=== PATIENT | male | born 1990 | race Caucasian/White ===

== ENCOUNTER 2017-11-26 04:09 | Emergency (ER) | payer SELFPAY ==
--- NOTE | 2017-11-26 04:10 | ED.GENADUL_ITS ---
Discharge Plan Discharge Details Chief Complaint: Chest Pain Clinical Impression: Chest wall pain Reason For Visit: ADRIAN Primary Care Provider: Kasey Dumont ED Provider: Uli Wilkinson Disposition Patient Disposition: HOME Condition: Good Home Meds and New Rx's Prescriptions: No Action No Known Home Meds RF: 0 Discharge Instructions Additional Instructions: Your laboratory studies and chest x-ray tonight were normal. Your pain appears to be related to chest wall pain as it is worse with palpation and better with Toradol. You may use Motrin as needed for pain. Follow-up with primary care this week. Return to emergency department for fever, new/worsening chest pain, shortness of breath, abdominal pain, other concerns. Referrals: Primary Care Provider [Outside] Medical Decision Making Medical Records Patient presenting to ED with complaint of chest pain. He has significant tenderness along bilateral costochondral margins and pain is completely reproducible. He also complained of near syncope, shortness of breath, hematemesis, hematochezia, hematuria. He refuses rectal exam. His blood pressure is fine. He is bradycardic not tachycardic. He does not appear to be in any distress. I doubt that this is ACS, dissection, PE. I also find it highly unlikely that he is bleeding as much as he states. He is completely hemodynamically stable. His EKG shows no acute ST changes. Will place IV and check labs including a troponin and d-dimer. Will get a chest x-ray. Will give Toradol for his pain. 6:30 AM - Patient's laboratory studies are unremarkable. His hemoglobin is high normal. His troponin and d-dimer are negative. There are no significant abnormalities on his blood work. His urinalysis is negative for blood. His chest x-ray is normal. His pain completely resolved with Toradol. His chest pain which is his presenting complaint is musculoskeletal in nature. In regards to his other complaints there is no evidence of significant bleeding at this time. This x-ray is negative and his d-dimer is negative as well. There does not appear to be any emergent condition which requires admission. He has been stable here and is pain-free. He will be discharged home to follow-up with primary care next week. He may use Motrin or Tylenol for the chest pain. Return to ED for fever, worsening pain, difficulty breathing, other concerns. Lab Data Lab results reviewed: Yes I reviewed the patient's lab results. ECG Data Attestation: I personally reviewed and interpreted this ECG (s) as follows: Interpretation: Sinus bradycardia at 55 with sinus arrhythmia. Normal axis and intervals. No acute ST changes. HPI - General Adult General Mode of arrival: EMS . Date/Time Provider Initiated Documentation: 11/26/17 04:09 . Limitations to Documentation: no limitations . Information obtained by: patient . HPI Narrative-FOR DICTATION ONLY HPI Narrative: Patient presents by EMS with complaints of chest pain. Patient reports having chest pain for the last couple of days. Tonight became severe and woke him up. He felt short of breath. He went to stand up got lightheaded and dizzy and almost passed out. He states he did fall. He did not have a loss of consciousness. He continues to have severe chest pain that does not radiate anywhere. He is also reporting vomiting blood, urinating blood, and having blood per rectum. He denies having abdominal pain. He states he has not been eating and drinking much. He has some discomfort in the left leg status post the fall. Related Data Home Medications Medication Instructions Recorded Confirmed Unknown [No Known Home Meds] 11/26/17 11/26/17 Allergies Allergy/AdvReac Type Severity Reaction Status Date / Time naproxen Allergy Mild Skin Rash Unverified 11/26/17 04:18 red dye Allergy Mild Skin Rash Unverified 11/26/17 04:18 Review of Systems Constitutional Denies chills, Denies fever(s), Denies headache(s), Denies malaise, Reports poor appetite and Denies weakness Eyes Patient Denies change in vision and denies ENT Denies otalgia, Denies headache(s), Denies nasal congestion and Denies sore throat Cardiovascular Reports chest pain, Denies syncope, Denies pedal edema, Denies palpitations and Reports dyspnea Respiratory Denies cough, Denies hemoptysis and Reports dyspnea Gastrointestinal Denies abdominal pain, Reports hematochezia, Denies diarrhea, Reports nausea, Reports vomiting and Reports hematemesis Genitourinary Reports hematuria and Denies dysuria Musculoskeletal Reports myalgias, Denies arthralgias and Denies joint swelling Integumentary/Breasts Denies rash Neurologic Denies confusion, Denies syncope, Denies headache(s), Reports paresthesias and Denies weakness Psychiatric Denies confusion and Reports depression Endocrine Denies palpitations PFSH Social History Smoking/Tobacco Use Status: Former Tobacco Use alcohol intake: current alcohol intake frequency: a few times a month substance use type: does not use Surgical History S/P wrist surgery (Acute) Exam Const General: cooperative, comfortable and no acute distress Orientation: alert and oriented x3 HENMT Head: normocephalic and atraumatic Mouth: moist mucous membranes Eyes Pupils: PERRL Neck Neck: full ROM and supple Chest Chest: tenderness costochondral junction Resp Effort & Inspection: normal respiratory effort Auscultation: clear to auscultation bilaterally Cardio Rate: bradycardic Rhythm: regular rhythm Heart Sounds: S1 normal and S2 normal Pulses: normal peripheral pulses GI Inspection: normal to inspection Palpation: soft, no guarding and nontender Rectal Exam: other (patient refused) Back/Spine/Pelvis Back: No back tenderness Skin General skin exam: no erythema Rashes: no rashes Neuro General: alert, no focal motor deficits and CN's II-XI intact bilaterally Cognition: normal cognition Speech: speech normal Extrem General: normal to inspection, full ROM and no pedal edema
[2017-11-26 04:11] VITALS: BP 122/62; PULSE 51; RESP 16; TEMP 36.6; O2SAT 97
[2017-11-26 04:14] VITALS: RESP 14
--- NOTE | 2017-11-26 04:41 | DI.RAD_ITS ---
SYMPTOMS/DIAGNOSIS: CHEST PAIN PA AND LATERAL CHEST: Comparison is made with February,. The cardiac and mediastinal contours have a normal appearance. The lungs are well inflated and clear. No infiltrate, effusion or pneumothorax is seen. IMPRESSION: Negative chest x-ray.
[2017-11-26 05:00] LABS: Abs Immature Grans 0.02 k/cumm (0.0-0.09); Absolute Basophil Count 0.04 k/cumm (0.0-0.2); Absolute Eosinophil Count 0.14 k/cumm (0.0-0.7); Absolute Lymphocyte Count 2.76 k/cumm (1.2-3.4); Absolute Monocyte Count 0.82 k/cumm (0.11-0.7); Basophils % 0.4; Eosinophils % 1.3; HCT 48.6 % (40.0-50.0); HGB 17.3 g/dL (13.5-17.5); Immature Grans % 0.2; Lymphocytes % 25.8; Mean Corp. HGB Concentration 35.6 g/dL (32.0-36.0); Mean Corpuscular Hemoglobin 31.1 pg (27.0-33.0); Mean Corpuscular Volume 87.4 fL (80-95); Monocytes % 7.7; Neutrophils % 64.6; Platelet Count 257 x1000/uL (130-400); RBC 5.56 m/cumm (4.50-6.00); RBC Distribution Width 12.3 % (11.8-14.1); White Blood Cell Count 10.68 k/cumm (4.4-10.8)
[2017-11-26] MEDS: Ketorolac 30 MG/ML VIAL IVP (05:05)
[2017-11-26] MEDS: Normal Saline Flush 10 ML SYR IVP (05:06)
--- NOTE | 2017-11-26 05:08 | DI.VRAD_ITS ---
EXAM: XR Chest, 2 Views CLINICAL HISTORY: 26 years old, male; Pain; Chest pain; Type not specified TECHNIQUE: Frontal and lateral views of the chest. COMPARISON: No relevant prior studies available. FINDINGS: Lungs: Unremarkable. No consolidation. Pleural space: Unremarkable. No pneumothorax. Heart: Unremarkable. No cardiomegaly. Mediastinum: Unremarkable. Bones/joints: Unremarkable. IMPRESSION: Normal chest x-rays. Dictated and Authenticated by: Daniel Villasenor MD. Ordering:KALA THORNTON MD
[2017-11-26 05:16] LABS: ALT 27 U/L (12-78); AST 12 U/L (15-37); Albumin 3.7 g/dL (3.4-5.0); Alkaline Phosphatase 82 U/L (46-116); BUN 10 mg/dL (7-18); Bilirubin, Total 0.6 mg/dL (0.2-1.0); CREATININE 1.02 mg/dL (0.70-1.30); Calcium 8.7 mg/dL (8.5-10.1); Chloride 103 mmol/L (98-107); Glucose 94 mg/dL (70-100); Magnesium 1.9 mg/dL (1.8-2.4); Potassium 3.4 mmol/L (3.5-5.1); Sodium 138 mmol/L (136-145); Total Protein 6.8 g/dL (6.4-8.2)
[2017-11-26 05:17] LABS: Troponin I < 0.02 ng/mL (0.00-0.06)
[2017-11-26 05:30] LABS: D-Dimer 98 ng/mlFEU (<500)
[2017-11-26 05:55] VITALS: BP 126/70; PULSE 53; RESP 18; TEMP 36.5; O2SAT 99
[2017-11-26 06:01] LABS: Bilirubin Small (Negative); Blood Negative (Negative); Clarity Sl Cloudy; Glucose Negative (Negative); Ketones Trace mg/dL (Negative); Leukocyte Esterase Small (Negative); Nitrite Negative (Negative); Specific Gravity 1.025 (1.005-1.025); Urobilinogen >=8.0 EU/dL (Up TO 0.2); pH 6.5 (5-8)
[2017-11-26 06:11] LABS: Bacteria Rare HPF (Negative); C & S Indicated? No/Sq. Contamination; Casts Negative LPF (Negative); Crystals Negative HPF (Negative); Epithelial Cells Many HPF (Negative); Mucus Moderate (Negative)
[2017-11-26 06:44] VITALS: BP 126/70; PULSE 53; RESP 18; TEMP 36.5; O2SAT 99
== END 2017-11-26 06:52 | disposition home or self-care (01) ==
PROVIDERS: Emergency Provider Emergency Medicine; PCP Nurse Practitioner
DX: R07.89 Other chest pain (principal); R55 Syncope and collapse
CPT/HCPCS: 36415; 80053; 93005; 96374; 99285; 71046; 81003; 81015; 83735; 84484; 85025; 85379; 93010; J1885